=== PATIENT | female | born 1950 | race Caucasian/White ===

== ENCOUNTER → 2016-11-13 | Outpatient (CLI) | payer MEDICARE ==
[~2016-11-13] MED LIST: ALIGN PO; CYMBALTA 60MG60 MG PO; DITROPAN 5MG TAB5 MG PO; FOLIC ACID 11 MG/TA1 PO; IMODIUM 2MG CAPS2 MG PO; LASIX 20MG TABL20 MG PO; LIDO2%GEL TOP; METAMUCIL3.4 GM/Dos PO; MIRALAX PA17 GM/Dose PO; PERIDEX (CHLOR480 ML MM; SENNA-LAX8.6 MG PO; SEPTRA DS 8001 TAB PO; TESSALON P100 MG/CAP PO; ULTRAM 50MG TAB50 MG PO; VITAMIN B-1000 MCG/T PO; [UNRECOGNIZED DRUG - OTHER] PO
== END ==
LOC: COL.RAD 13:58
DX: G31.9 Degenerative disease of nervous system, unspecified (principal); R90.82 White matter disease, unspecified; G93.9 Disorder of brain, unspecified; G93.6 Cerebral edema
CPT/HCPCS: A9585

== ENCOUNTER 2016-12-26 05:37 | Day surgery (SDC) | payer MEDICARE, MEDICAID ==
[~2016-12-26] VITALS: Ht 152.4 cm; Wt 47.7 kg
[2016-12-26] VITALS (10 sets, daily range): BP systolic 109–143; BP diastolic 60–76; PULSE 83–97; TEMP 97.3–98
[2016-12-26 06:17] LABS: BASO % 0.5 % (0.0-2.0); EOS # 0.3 (0.0-0.7); EOS % 3.4 % (0-4.0); GRAN # 5.5 (1.4-6.5); GRAN % 63.5 % (42.2-75.2); HEMATOCRIT 40.5 % (37.0-47.0); HEMOGLOBIN 13.2 g/dl (12.5-16.0); LYMPH % 23.6 % (20.0-51.0); MEAN CELL VOLUME 101 fl (80.0-100.0); MEAN CORPUSCULAR HEMOGLOBIN 33 pg (27.0-31.0); MEAN CORPUSCULAR HGB CONC 33 g/dl (33.0-37.0); MEAN PLATELET VOLUME 9.5 fl (7.4-10.4); MONO # 0.8 (0.1-0.6); MONO % 8.8 % (1.7-9.3); PLATELET COUNT 188 K/mm3 (130-400); RED BLOOD COUNT 4.02 M/mm3 (4.10-5.30); REDCELL DISTRIBUTION WIDTH-CV 13.6 % (11.5-14.5); WHITE BLOOD COUNT 8.7 K/mm3 (4.8-10.8)
[2016-12-26 06:27] LABS: CALCIUM 9.4 mg/dL (8.4-10.2); CREATININE, serum 0.6 mg/dL (0.52-1.25); POTASSIUM 4.5 mmol/L (3.4-5.0)
[2016-12-26] MEDS ORDERED: ALIGN PO (06:31)
[2016-12-26] MEDS ORDERED: CYMBALTA 60MG60 MG PO (06:31)
[2016-12-26] MEDS ORDERED: FOLIC ACID 11 MG/TA1 PO (06:32)
[2016-12-26] MEDS ORDERED: IMODIUM 2MG CAPS2 MG PO (06:32)
[2016-12-26] MEDS ORDERED: LASIX 20MG TABL20 MG PO (06:33)
[2016-12-26] MEDS ORDERED: LIDO2%GEL TOP (06:34)
[2016-12-26] MEDS ORDERED: MIRALAX PA17 GM/Dose PO (06:35)
[2016-12-26] MEDS ORDERED: METAMUCIL3.4 GM/Dos PO (06:35)
[2016-12-26] MEDS ORDERED: DITROPAN 5MG TAB5 MG PO (06:36)
[2016-12-26] MEDS ORDERED: PERIDEX (CHLOR480 ML MM (06:37)
[2016-12-26] MEDS ORDERED: [UNRECOGNIZED DRUG - OTHER] PO (06:38)
[2016-12-26] MEDS ORDERED: SENNA-LAX8.6 MG PO (06:39)
[2016-12-26] MEDS ORDERED: TESSALON P100 MG/CAP PO (06:39)
[2016-12-26] MEDS ORDERED: ULTRAM 50MG TAB50 MG PO (06:40)
[2016-12-26] MEDS ORDERED: SEPTRA DS 8001 TAB PO (06:42)
[2016-12-26] MEDS ORDERED: VITAMIN B-1000 MCG/T PO (06:43)
[2016-12-27 03:00] VITALS: BP 126/66; PULSE 87; TEMP 98.6
[2016-12-27 07:14] VITALS: BP 140/74; PULSE 87; TEMP 98.1
[2016-12-27 07:30] VITALS: BP 130/73; PULSE 89; TEMP 98
[2016-12-27 11:30] VITALS: BP 120/65; PULSE 92; TEMP 97.6
[2016-12-27 18:07] VITALS: BP 128/70; PULSE 105; TEMP 98.5
[2016-12-27 21:48] VITALS: BP 127/83; PULSE 101; TEMP 98.7
[2016-12-28 06:07] VITALS: BP 107/61; PULSE 69; TEMP 98.8
[2016-12-28 09:00] VITALS: BP 134/61; PULSE 81; TEMP 98.6
[2016-12-28 10:08] VITALS: BP 142/68; PULSE 73; TEMP 98.2
[2016-12-28 13:05] VITALS: BP 134/61; PULSE 81; TEMP 98.6
[2017-01-12] MEDS ORDERED: MILK OF MA400 MG/52 (17:16)
[2017-01-12] MEDS ORDERED: ALMACONE 360 M360 ML PO (17:17)
[2017-01-15] MEDS ORDERED: CEFTIN 250250 MG/TAB PO (09:02)
== END 2016-12-28 14:05 ==
LOC: SDCO 05:37 → JCC 11:25 → SDCO 12-28 14:05
PROVIDERS: Nurse Anesthetist, Certified Registered
DX: N31.9 Neuromuscular dysfunction of bladder, unspecified (principal); N39.498 Other specified urinary incontinence; N39.0 Urinary tract infection, site not specified; G35 Multiple sclerosis; R13.10 Dysphagia, unspecified; G31.9 Degenerative disease of nervous system, unspecified; R05 Cough
CPT/HCPCS: OP; J0690; J1100; J2175; J2405; J2704; J3010; J7120

== ENCOUNTER 2018-01-11 11:02 | Emergency (ER) | payer MEDICARE ==
[~2018-01-11] VITALS: Ht 152.4 cm; Wt 45.5 kg
[~2018-01-11 11:02] MED LIST changes: +ALMACONE 360 M360 ML PO; +CEFTIN 250250 MG/TAB PO; +MILK OF MA400 MG/52
[2018-01-11 11:06] VITALS: TEMP 98
[2018-01-11 11:42] LABS: BASO % 0.3 % (0.0-2.0); EOS # 1.6 (0.0-0.7); EOS % 10.5 % (0-4.0); GRAN % 71.3 % (42.2-75.2); HEMOGLOBIN 11.8 g/dl (12.5-16.0); LYMPH % 13.2 % (20.0-51.0); MEAN CELL VOLUME 104 fl (80.0-100.0); MEAN CORPUSCULAR HEMOGLOBIN 34 pg (27.0-31.0); MEAN CORPUSCULAR HGB CONC 33 g/dl (33.0-37.0); MEAN PLATELET VOLUME 9.3 fl (7.4-10.4); MONO # 0.7 (0.1-0.6); MONO % 4.4 % (1.7-9.3); PLATELET COUNT 202 K/mm3 (130-400); RED BLOOD COUNT 3.45 M/mm3 (4.10-5.30); REDCELL DISTRIBUTION WIDTH-CV 13.6 % (11.5-14.5)
[2018-01-11 11:47] LABS: ALBUMIN 3.2 gm/dL (3.5-5.0); BILIRUBIN,TOTAL 0.4 mg/dL (0.0-1.0); CALCIUM 8.4 mg/dL (8.4-10.2); CREATININE, serum 0.48 mg/dL (0.52-1.25); POTASSIUM 3.9 mmol/L (3.4-5.0); TOTAL PROTEIN 5.7 gm/dL (6.4-8.2)
[2018-01-11 11:49] LABS: HEMATOCRIT 35.9 % (37.0-47.0)
[2018-01-11 13:03] LABS: COLLECTION METHOD CATHETER
[2018-01-11 13:14] LABS: MUCOUS Present /lpf; PH 5 (5-8); SQUAMOUS EPITHELIAL None Seen /hpf; URINE APPEARANCE Clear; URINE BACTERIA None Seen /hpf; URINE BILIRUBIN Negative (NEGATIVE); URINE BLOOD Negative (NEGATIVE); URINE COLOR Yellow; URINE GLUCOSE Negative (NEGATIVE); URINE KETONE Negative (NEGATIVE); URINE LEUKOCYTE ESTERASE Trace (NEGATIVE); URINE NITRATE Negative (NEGATIVE); URINE PROTEIN(semi-quant) Negative (NEGATIVE); URINE RBC 0-2 /hpf; URINE UROBILINOGEN Negative (NEGATIVE)
[2018-01-11] MEDS ORDERED: ALIGN (13:18)
[2018-01-11] MEDS ORDERED: BOOST PLUS 240240 ML (13:19)
[2018-01-11] MEDS ORDERED: CALMOSEPTINE OI71 GM TP (13:20)
[2018-01-11] MEDS ORDERED: CARBATROL300 MG PO (13:21)
[2018-01-11] MEDS ORDERED: CYMBALTA 60MG60 MG PO (13:21)
[2018-01-11] MEDS ORDERED: DULCOLAX S10 MG/SUPP RC (13:22)
[2018-01-11] MEDS ORDERED: FOLIC ACID 11 MG/TA1 PO (13:30)
[2018-01-11] MEDS ORDERED: MOTRIN 200200 MG/TAB PO (13:34)
[2018-01-11] MEDS ORDERED: LASIX 20MG TABL20 MG PO (13:34)
[2018-01-11] MEDS ORDERED: MACROBID 1100 MG/CAP PO (13:44)
[2018-01-11] MEDS ORDERED: MIRALAX PA17 GM/Dose PO (13:46)
[2018-01-11] MEDS ORDERED: NORCO 325 MG-51 TAB (13:55)
[2018-01-11] MEDS ORDERED: AMOXICILLIN 8751 TAB PO (13:59)
[2018-01-11 14:14] VITALS: BP 133/72; PULSE 85
[2018-01-11] MEDS ORDERED: DITROPAN 5MG TAB5 MG PO (14:42)
== END 2018-01-11 15:17 | disposition home or self-care (01) ==
LOC: COL.ER 11:02
PROVIDERS: Emergency Medicine
DX: N39.0 Urinary tract infection, site not specified (principal); G35 Multiple sclerosis; Z95.9 Presence of cardiac and vascular implant and graft, unspecified
CPT/HCPCS: J0696; J7030

== ENCOUNTER → 2018-08-11 | Outpatient (CLI) | payer MEDICARE, MEDICAID ==
[~2018-08-11] MED LIST changes: +ALIGN; +AMOXICILLIN 8751 TAB PO; +BOOST PLUS 240240 ML; +CALMOSEPTINE OI71 GM TP; +CARBATROL300 MG PO; +DULCOLAX S10 MG/SUPP RC; +MACROBID 1100 MG/CAP PO; +MOTRIN 200200 MG/TAB PO; +NORCO 325 MG-51 TAB
== END ==
LOC: COL.RAD 12:04
DX: Z01.812 Encounter for preprocedural laboratory examination (principal); G35 Multiple sclerosis; G50.0 Trigeminal neuralgia; G31.9 Degenerative disease of nervous system, unspecified
CPT/HCPCS: A9585